=== PATIENT | male | born 1970 | race Two or more races ===

== ENCOUNTER 2024-10-27 10:41 | Emergency (ER) | payer MEDICAID, SELFPAY ==
[2024-10-27 11:04] VITALS: BP 118/75; PULSE 80; RESP 18; TEMP 36.8; O2SAT 99
--- NOTE | 2024-10-27 11:12 | XR_ITS ---
Examination: Testicular sonography complete. Technique: Sonographic images testes, assessment arterial inflow venous outflow, Doppler spectral analysis carful analysis. Date and time: October 27, 2024, 1138 hrs. Indications: Right testicular pain beginning 2 days ago. Findings: Right testis 4.1 cm epididymis 1.2 cm Arterial flow testicle. No testicular mass. Mild hydrocele Left testis 3.1 cm epididymis 1.0 cm Arterial flow testicle. No testicular mass Small hydrocele Impression: No testicular torsion or testicular mass
--- NOTE | 2024-10-27 11:12 | XR_ITS ---
Examination: CT abdomen and pelvis without contrast. Coronal 3-D reconstructions. Sagittal 2-D reconstructions. Date and time of exam:October 27, 2024, 1119 hrs., Comparison April 24, 2022 Indications: Right back pain testicular pain abdominal pain beginning 3 days ago CTDI: vol (mGy): 5.49 DLP: (mGycm): 292 Technique: Axial images of the abdomen have been obtained, 3 mm slice thickness Intravenous contrast material has not been administered. Low dose protocols were performed. One or more of the following dose reduction techniques were used; automated exposure control, adjustment of the mA and/or KV according to patient size, use of iterative reconstruction technique. Findings: No focal liver or splenic lesions No gallstones No renal or ureteral calculi 29 mm lower pole right renal cyst Aorta normal size No bowel obstruction. Normal appendix No diverticulitis. Urinary bladder wall thickening up to 4 mm, no bladder calculi. No significant prostatomegaly Mild disc narrowing L3-L4 L5-S1 3 mm central lumbar disc bulge Impression: No renal or ureteral calculi, no hydronephrosis. Normal appendix. No bowel obstruction or diverticulitis. Mild thickening of urinary bladder wall, consider cystitis Mild degenerative disc disease L3-L4
--- NOTE | 2024-10-27 11:13 | PD.EDRME ---
Rapid Medical Screening Exam RME Arrival date/time: 10/27/24 10:41 53-year-old male with a history of hyperlipidemia and right-sided inguinal hernia repair presents to the emergency room with a chief complaint of right lower abdominal pain that radiates down to his groin and into his testicle x 3 days I have greeted and performed a focused initial assessment of this patient. A comprehensive ED assessment and evaluation of the patient, analysis of all test results, and completion of the medical decision making process will be conducted by additional ED providers. Chief Complaint: Back Pain/Injury Time Seen by Provider: 10/27/24 10:57 Vital signs: Vital Signs Temperature 98.2 F 10/27/24 11:04 Pulse Rate 80 10/27/24 11:04 Respiratory Rate 18 10/27/24 11:04 Blood Pressure 118/75 10/27/24 11:04 Pulse Oximetry (%) 99 10/27/24 11:04 Oxygen Delivery Method Room Air 10/27/24 11:04 Vital signs reviewed by provider: Yes
[2024-10-27 11:49] LABS: Basophils # (Auto) 0.0 Thou/mm3 (0.0-0.2); Basophils % (Auto) 0 % (0-2.5); Eosinophils # (Auto) 0.1 Thou/mm3 (0.0-0.5); Eosinophils % (Auto) 2 % (0-10); Hematocrit 43.1 % (41.0-53.0); Hemoglobin 14.9 g/dL (13.5-16.0); Immature Granulocytes Auto 0.04 Thou/mm3 (0.00-0.00); Lymphocytes # (Auto) 1.3 Thou/mm3 (1.0-4.8); Lymphocytes % (Auto) 16 % (10-50); Mean Corpuscular HGB Conc 34.6 g/dl (31.0-37.0); Mean Corpuscular Hemoglobin 30.6 pg (25.0-35.0); Mean Corpuscular Volume 89 fL (80-100); Monocytes # (Auto) 0.7 Thou/mm3 (0.0-0.8); Monocytes % (Auto) 9 % (0-12); Neutrophils # (Auto) 5.9 Thou/mm3 (1.8-7.7); Neutrophils % (Auto) 73 % (37-80); Nucleated Red Blood Cell # 0.00 Thou/mm3 (0.00-0.00); Nucleated Red Blood Cell % 0 /100 WBC (0); Platelet Count 211 Thou/mm3 (140-440); RDW Standard Deviation 42.0 fL (35.1-43.9); Red Blood Count 4.87 Miln/mm3 (4.50-5.90); White Blood Count 8.0 Thou/mm3 (3.8-10.6)
[2024-10-27] MEDS: ONDANSETRON ODT 4 MG TABRAP PO (11:54)
[2024-10-27] MEDS: KETOROLAC INJ 60 MG/2 ML VIAL 30 MG IM (11:55)
[2024-10-27 12:18] LABS: Alanine Aminotransferase 10 U/L (10-49); Albumin, Serum 4.0 gm/dL (3.5-5.0); Albumin/Globulin Ratio 1.5 (1.2-2.2); Alkaline Phosphatase 60 U/L (46-116); Anion Gap 7 (7-16); Aspartate Amino Transferase 17 U/L (0-34); BUN/Creatinine Ratio 16 Ratio (12-20); Bilirubin,Total 0.5 mg/dL (0.3-1.2); Blood Urea Nitrogen 14 mg/dL (9-23); Calcium 9.2 mg/dL (8.3-10.6); Calcium (Corrected) 9.2 mg/dL (8.5-10.1); Carbon Dioxide 23.7 mMol/L (20.0-31.0); Chloride 108 mMol/L (98-107); Creatinine (Component) 0.9 mg/dL (0.6-1.3); Globulin 2.7 gm/dL (2.3-3.5); Glucose 98 mg/dL (74-106); Lipase 32 U/L (12-53); Osmolality,Calculated 278 (275-295); Potassium 4.2 mMol/L (3.4-5.1); Sodium 139 mMol/L (136-145); Total Protein 6.7 gm/dL (5.7-8.2); eGFR > 60 See Note
[2024-10-27 12:33] LABS: Collection Type, Urine Clean Catch; WBC,Urine 0 /hpf (0-5)
[2024-10-27 12:35] VITALS: BP 113/74; PULSE 60; RESP 16; TEMP 36.8; O2SAT 97
--- NOTE | 2024-10-27 12:40 | PD.EDABDPN ---
ED Abdominal Pain RME/HPI General Chief Complaint: Back Pain/Injury Stated complaint: BACK/R) SIDE PAIN X 2 DAYS Time seen by provider: 10/27/24 10:57 Arrival date/time: 10/27/24 10:41 Limitations: no limitations RME / HPI RME / HPI narrative: 10/27/24 10:41 53-year-old male with a history of hyperlipidemia and right-sided inguinal hernia repair presents to the emergency room with a chief complaint of right lower abdominal pain that radiates down to his groin and into his testicle x 3 days I have greeted and performed a focused initial assessment of this patient. A comprehensive ED assessment and evaluation of the patient, analysis of all test results, and completion of the medical decision making process will be conducted by additional ED providers. Related Data Home Medications ?Medication ?Instructions ?Recorded ?Confirmed atorvastatin 40 mg tablet 40 mg PO DAILY 12/01/22 12/01/22 omeprazole 20 mg capsule,delayed 20 mg PO DAILY 12/01/22 12/01/22 release Previous Rx's ?Medication ?Instructions ?Recorded dicyclomine 20 mg tablet 20 mg PO BID #14 tabs 10/27/24 naproxen 500 mg tablet (Naprosyn) 500 mg PO BID #14 tabs 10/27/24 Allergies Allergy/AdvReac Type Severity Reaction Status Date / Time No Known Allergies Allergy Verified 10/27/24 10:45 Review of Systems Review of Systems Systems Reviewed: All systems reviewed, normal except as documented ED Exam General Limitations: Present no limitations General appearance: Present alert and in no apparent distress Head Head exam: Present atraumatic Eye Eye exam: Present normal appearance, PERRL and EOMI ENT ENT exam: Present normal exam, normal oropharynx and mucous membranes moist Neck Neck exam: Present normal inspection, full ROM and trachea midline Chest Chest inspection: Present normal inspection and symmetric chest wall rise Respiratory Respiratory exam: Present normal lung sounds bilaterally Cardiovascular Cardiovascular exam: Present regular rate, normal rhythm and normal heart sounds Abdominal Exam Abdominal exam: Present soft and normal bowel sounds Extremities Exam Extremities exam: Present normal inspection and full ROM Back Exam Back exam: Present normal inspection and full ROM Neurological Exam Neurological exam: Present alert and oriented X3 Psychiatric Psychiatric exam: Present normal affect and normal mood Skin Skin exam: Present warm, dry, intact and normal color Course Quality Measures none Orders Category Date Time Status CT abdomen pelvis wo con Stat Exams 10/27/24 11:12 Completed US testicular Stat Exams 10/27/24 11:12 Completed CBC Stat Lab 10/27/24 11:34 Completed CMP [Comprehensive Metabolic Panel] Stat Lab 10/27/24 11:34 Completed Lipase Stat Lab 10/27/24 11:34 Completed UA [Urinalysis] Stat Lab 10/27/24 12:00 Completed Urine Culture Stat Lab 10/27/24 12:00 Received Ketorolac Inj [Toradol Inj] Med 10/27/24 11:12 Discontinued 30 mg IM X1 ONE Ondansetron Odt [Zofran Odt] Med 10/27/24 11:12 Discontinued 4 mg PO X1 ONE fentaNYL INJ [Sublimaze Inj] Med 10/27/24 12:39 Discontinued 25 mcg IM X1 ONE Vital Signs Vital signs: Vital Signs Temperature 98.2 F 10/27/24 11:04 Pulse Rate 80 10/27/24 11:04 Respiratory Rate 18 10/27/24 11:04 Blood Pressure 118/75 10/27/24 11:04 Pulse Oximetry (%) 99 10/27/24 11:04 Oxygen Delivery Method Room Air 10/27/24 11:04 Abdominal Pain MDM MDM Narrative MDM Narrative:: 53-year-old male who is here today with a 3-day history of right lower quadrant and right testicular tenderness. He has nausea but no vomiting. He states he has a history of inguinal hernia. He has history of hyperlipidemia, denies any other chronic medical history. Denies any falls or injuries. Has no dysuria. Denies any impact injury. He has no other acute complaints. On exam, patient is nontoxic-appearing in no visible sign stress. He has no point tenderness on exam. His CBC, metabolic panel, urinalysis, lipase are all unremarkable. Imaging studies including CT of the abdomen pelvis and inguinal ultrasound are unremarkable. Greater than 15 minutes was spent at bedside discussing the results. A computer was brought into the exam room so the patient could see the results as well. I do not find any emergent causes to keep the patient in the hospital at this time. He will be discharged with a prescription of naproxen send and Bentyl. He is asked to follow-up with his primary clinic this week. Return as needed for any worsening or emergent changes. Patient data External records reviewed:: None Clinical information provided by:: patient and family Social determinants that could affect healthcare access:: none Patient has the following chronic illnesses:: Hyperlipidemia How is presenting disease/condition affected by chronic disease/condition?: uneffected by Evaluation data The following diagnostics were reviewed and interpreted by me:: lab results (No leukocytosis or anemia. No metabolic derangement. No UTI.) and radiology exam(s) (No acute, intra-abdominal or pelvic abnormality) Lab and/or radiology exams considered but not ordered:: n/a Interpretation Summary: Abdominal pain, cramping Medications / Prescriptions Medications or Prescriptions considered but not ordered:: n/a Medication administrations:: Medication Administration History Discontinued Medications Fentanyl Citrate (Fentanyl Cit Inj 50 Mcg/Ml Amp 2ml) 25 mcg IM X1 ONE Stop: 10/27/24 12:40 Last Admin: 10/27/24 12:47 Dose: 25 mcg Documented By: TATY Ketorolac Tromethamine (Ketorolac Inj 60 Mg/2 Ml Vial) 30 mg IM X1 ONE Stop: 10/27/24 11:13 Last Admin: 10/27/24 11:55 Dose: 30 mg Documented By: SIDDHARTHA Ondansetron HCl (Ondansetron Odt 4 Mg Tabrap) 4 mg PO X1 ONE; Protocol Stop: 10/27/24 11:13 Last Admin: 10/27/24 11:54 Dose: 4 mg Documented By: SIDDHARTHA See above Consultations Consultation(s) initiated? (list below): No Diagnosis Differential diagnosis abdominal pain: abdominal pain Most likely diagnosis given after review of the tests above:: Abdominal pain, cramping Admission Indicated Admission indicated?: not indicated Admission Request Was there a request for admission?: No Disposition Plan Disposition Plan: Discharge Discharge Attestation Discharge Attestation: The patient and all family members were given an opportunity to ask questions and understood the discharge instructions. Discharge instructions specifically effects, indications for sooner follow up or return to the emergency department, and the expected course of current diagnosis. Patient condition: Stable Discharge Plan Plan Patient Disposition: HOME (Self Care) Patient condition on transfer: Stable Prescriptions/Referrals Prescriptions/Med Rec: New naproxen [Naprosyn] 500 mg tablet 500 mg PO BID Qty: 14 0RF dicyclomine 20 mg tablet 20 mg PO BID Qty: 14 0RF No Action atorvastatin 40 mg tablet 40 mg PO DAILY Patient Comments: TAKE 1 TABLET BY MOUTH EVERY DAY omeprazole 20 mg capsule,delayed release(DR/EC) 20 mg PO DAILY Patient Comments: TAKE 1 CAPSULE BY MOUTH EVERY DAY 30 MINUTES BEFORE MORNING MEAL Referrals: No Primary/Family,Physician [Primary Care Provider] - In 1 week Problem List Clinical Impression: Abdominal pain Patient/Caregiver Discharge Instructions Education Materials: Abdominal Pain Additional Instructions: - Your workup today was unremarkable for any emergent pathology. - 2 medications have been sent to your pharmacy to use for symptomatic relief. - Please contact your primary clinic this week to schedule close follow-up appointment. - Please return to the emergency room anytime for any worsening or emergent changes. Print Language: Cam[place]onian Stand Alone Forms: Radha Award Info., Patient Portal Info Letter
[2024-10-27] MEDS: fentaNYL CIT INJ 50 mCg/ML AMP 2ML 25 MCG IM (12:47)
[2024-10-27 12:53] LABS: Amorphous Crystals,Urine Present (Absent); Bilirubin,Urine Negative (Negative); Blood,Urine Negative (Negative); Clarity,Urine Turbid (Clear/Hazy); Color,Urine Lt-Yellow (Lt Yel-Yel); Glucose, Urine Negative (Negative); Ketones,Urine Negative (Negative); Leukocyte Esterase,Urine Negative (Negative); Nitrite,Urine Negative (Negative); PH,Urine 7.0 (5.0-7.0); Protein,Urine Negative (Neg - Trace); RBC,Urine 3 /hpf (0-3); Specific Gravity,Urine 1.022 (1.001-1.035); Squamous Epithelial Cell,Urine < 1 /hpf (0-5); Urobilinogen,Urine Negative mg/dL (0.0-1.0)
[2024-10-27 14:24] VITALS: BP 115/72; PULSE 70; RESP 18; TEMP 36.4; O2SAT 98
== END 2024-10-27 15:07 | disposition home or self-care (01) ==
PROVIDERS: Nurse Practitioner Family; Emergency Provider Emergency Medicine
DX: R10.31 Right lower quadrant pain (principal); M51.369 Other intervertebral disc degeneration, lumbar region without mention of lumbar back pain or lower extremity pain; N32.89 Other specified disorders of bladder
CPT/HCPCS: 36415; 74176; 76870; 80053; 81001; 83690; 85025; 87086; 96372; 99283; J1885; J3010; Q0162